=== PATIENT | male | born 1980 | race Caucasian/White ===

== ENCOUNTER 2017-12-06 20:49 | Emergency (ER) | payer BC, OTHER ==
[2017-12-06 21:06] VITALS: BP 130/79
[2017-12-06] MEDS ORDERED: predniSONE TAB* 20 MG PO ONE (21:20)
[2017-12-06] MEDS ORDERED: Clarithromycin TAB* 500 MG PO ONE (21:20)
--- NOTE | 2017-12-06 21:26 | ED ---
Respiratory - HPI Summary HPI Summary: 37 yr old male with the complaint of fever, chills, sinus pressure, post nasal drip, and wheezing. Onset over a day ago, and he has a prior history of asthma. SOB relieved with his MDI. - History of Current Complaint Chief Complaint: UCRespiratory Stated Complaint: FEVER/CONGESTION/HX ASTHMA Time Seen by Provider: 12/06/17 21:16 Pain Intensity: 0 - Allergy/Home Medications Allergies/Adverse Reactions: Allergies Allergy/AdvReac Type Severity Reaction Status Date / Time No Known Allergies Allergy Verified 11/12/15 19:50 PMH/Surg Hx/FS Hx/Imm Hx Cardiovascular History: Reports: Hx Hypertension - DIET CONTROLLED Respiratory History: Reports: Hx Asthma - Surgical History Surgery Procedure, Year, and Place: left elbow ORIF. LIPOMA REMOVAL UNDER CHIN Infectious Disease History: No Infectious Disease History: Denies: Hx Clostridium Difficile, Hx Hepatitis, Hx Human Immunodeficiency Virus (HIV), Hx of Known/Suspected MRSA, Hx Shingles, Hx Tuberculosis, Hx Known/ Suspected VRE, Hx Known/Suspected VRSA, History Other Infectious Disease, Traveled Outside the [place] in Last 30 Days - Family History Known Family History: Positive: None Family History: no known cardio-vascular disorders in family lineage - Social History Alcohol Use: Occasionally Substance Use Type: Reports: None Smoking Status (MU): Never Smoked Tobacco Review of Systems Constitutional: Negative Positive: Nasal Discharge Positive: Shortness Of Breath, Cough All Other Systems Reviewed And Are Negative: Yes Physical Exam Triage Information Reviewed: Yes Vital Signs On Initial Exam: Initial Vitals Temp Pulse Resp BP Pulse Ox 98.0 F 92 19 130/79 97 12/06/17 20:58 12/06/17 20:58 12/06/17 20:58 12/06/17 20:58 12/06/17 20:58 Vital Signs Reviewed: Yes Appearance: Positive: Well-Appearing, No Pain Distress Skin: Positive: Warm, Skin Color Reflects Adequate Perfusion Head/Face: Positive: Normal Head/Face Inspection Eyes: Positive: EOMI ENT: Positive: Pharynx normal, TMs normal, Sinus tenderness. Negative: Muffled voice Neck: Positive: Nontender Respiratory/Lung Sounds: Positive: Clear to Auscultation, Breath Sounds Present. Negative: Wheezes Cardiovascular: Positive: RRR. Negative: Murmur Abdomen Description: Positive: Nontender Musculoskeletal: Positive: Strength/ROM Intact Neurological: Positive: Sensory/Motor Intact, Alert, Oriented to Person Place, Time, CN Intact II-III Psychiatric: Positive: Normal - [place] Coma Scale Best Eye Response: 4 - Spontaneous Best Motor Response: 6 - Obeys Commands Best Verbal Response: 5 - Oriented Coma Scale Total: 15 Diagnostics - Vital Signs Vital Signs Temp Pulse Resp BP Pulse Ox 12/06/17 20:58 98.0 F 92 19 130/79 97 - Laboratory Lab Statement: Any lab studies that have been ordered have been reviewed, and results considered in the medical decision making process. Disposition - Course Course Of Treatment: 37 yr old male with sinusitis, and asthma. Plan dc home on biaxin and pred, and he can take his MDI that he has. - Diagnoses Provider Diagnoses: Sinusitis, Asthma, Elevated blood pressure reading Discharge - Sign-Out/Discharge Documenting (check all that apply): Patient Departure All imaging exams completed and their final reports reviewed: No Studies - Discharge Plan Condition: Good Disposition: HOME Prescriptions: Clarithromycin TAB* [Biaxin 500 MG TAB*] 500 mg PO BID #20 tab predniSONE TAB* [Deltasone 20 MG TAB*] 40 mg PO DAILY #8 tab Patient Education Materials: Sinusitis (ED), Asthma (ED), Hypertension (ED) Referrals: Maritza Steward PA [Primary Care Provider] - 2 Days - Billing Disposition and Condition Condition: GOOD Disposition: Home
== END 2017-12-06 21:31 | disposition home or self-care (01) ==
LOC: UCCORT 20:49
DX: J32.9 Chronic sinusitis, unspecified (principal); J45.909 Unspecified asthma, uncomplicated; R03.0 Elevated blood-pressure reading, without diagnosis of hypertension
CPT/HCPCS: 99212; A9270-GY; G0463; J7512

== ENCOUNTER 2018-06-22 16:27 | Emergency (ER) | payer BC ==
[2018-06-22 16:45] VITALS: BP 130/78
[2018-06-22 17:03] LABS: Influenza A Molecular NEGATIVE (Negative); Influenza B Molecular NEGATIVE (Negative)
--- NOTE | 2018-06-22 17:14 | ED ---
Throat Pain/Nasal Congestion - HPI Summary HPI Summary: 38 yr old with NVD. Onset two days ago. His little son has had NVD diarrhea as well. The patient has had some left frontal headache. No fever, no chills. No SOB, cough, runny nose. Symptoms are much better. He has not vomited in 15 hours, and he has had little diarrhea today. He is tolerating clear liquids no problem. No abdominal pain. - History of Current Complaint Chief Complaint: UCRespiratory Time Seen by Provider: 06/22/18 16:51 - Allergies/Home Medications Allergies/Adverse Reactions: Allergies Allergy/AdvReac Type Severity Reaction Status Date / Time No Known Allergies Allergy Verified 06/22/18 16:42 Home Medications: Home Medications Budesonide/Formote 160/4.5(NF) [Symbicort 160/4.5 (NF)] 1 puff DAILY 06/22/18 [ History Confirmed 06/22/18] Sertraline* [Zoloft*] 1 tab DAILY 06/22/18 [History Confirmed 06/22/18] PMH/Surg Hx/FS Hx/Imm Hx Cardiovascular History: Reports: Hx Hypertension - DIET CONTROLLED Respiratory History: Reports: Hx Asthma - Surgical History Surgery Procedure, Year, and Place: left elbow ORIF. LIPOMA REMOVAL UNDER CHIN Infectious Disease History: No Infectious Disease History: Denies: Hx Clostridium Difficile, Hx Hepatitis, Hx Human Immunodeficiency Virus (HIV), Hx of Known/Suspected MRSA, Hx Shingles, Hx Tuberculosis, Hx Known/ Suspected VRE, Hx Known/Suspected VRSA, History Other Infectious Disease, Traveled Outside the [place] in Last 30 Days - Family History Known Family History: Positive: None Family History: no known cardio-vascular disorders in family lineage - Social History Occupation: Employed Full-time Alcohol Use: Occasionally Substance Use Type: Reports: None Smoking Status (MU): Never Smoked Tobacco Review of Systems Negative: Photophobia Negative: Sore Throat, Nasal Discharge Negative: Shortness Of Breath, Cough Positive: Vomiting, Diarrhea, Nausea Negative: Myalgia All Other Systems Reviewed And Are Negative: Yes Physical Exam Triage Information Reviewed: Yes Vital Signs On Initial Exam: Initial Vitals Temp Pulse Resp BP Pulse Ox 98.6 F 93 16 130/78 100 06/22/18 16:43 06/22/18 16:43 06/22/18 16:43 06/22/18 16:43 06/22/18 16:43 Vital Signs Reviewed: Yes Appearance: Positive: Well-Appearing, No Pain Distress Skin: Positive: Warm, Skin Color Reflects Adequate Perfusion Head/Face: Positive: Normal Head/Face Inspection Eyes: Positive: EOMI ENT: Positive: Pharynx normal, TMs normal. Negative: Nasal congestion, Nasal drainage Respiratory/Lung Sounds: Positive: Clear to Auscultation, Breath Sounds Present Cardiovascular: Positive: RRR. Negative: Murmur Abdomen Description: Positive: Nontender Musculoskeletal: Positive: Strength/ROM Intact Neurological: Positive: Sensory/Motor Intact, Alert, Oriented to Person Place, Time, CN Intact II-III Psychiatric: Positive: Normal - Rene Coma Scale Best Eye Response: 4 - Spontaneous Best Motor Response: 6 - Obeys Commands Best Verbal Response: 5 - Oriented Coma Scale Total: 15 Diagnostics - Vital Signs Vital Signs Temp Pulse Resp BP Pulse Ox 06/22/18 16:43 98.6 F 93 16 130/78 100 - Laboratory Lab Results: Lab Results 06/22/18 Range/Units 16:51 Influenza A (Rapid) Negative (Negative) Influenza B (Rapid) Negative (Negative) Lab Statement: Any lab studies that have been ordered have been reviewed, and results considered in the medical decision making process. EENT Course/Dx - Course Course Of Treatment: 38 yr old with gastroenteritis. His rapid flu, neg. - Diagnoses Provider Diagnoses: Gastroenteritis Discharge - Sign-Out/Discharge Documenting (check all that apply): Patient Departure All imaging exams completed and their final reports reviewed: No Studies - Discharge Plan Condition: Good Disposition: HOME Patient Education Materials: Gastroenteritis (ED) Referrals: Maritza Steward PA [Primary Care Provider] - 2 Days - Billing Disposition and Condition Condition: GOOD Disposition: Home
== END 2018-06-22 17:37 | disposition home or self-care (01) ==
LOC: UCCORT 16:27
DX: K52.9 Noninfective gastroenteritis and colitis, unspecified (principal); I10 Essential (primary) hypertension; J45.909 Unspecified asthma, uncomplicated; Z79.899 Other long term (current) drug therapy
CPT/HCPCS: 99211; G0463

== ENCOUNTER 2018-10-24 16:35 | Emergency (ER) | payer BC ==
[2018-10-24 16:47] VITALS: BP 136/73
--- NOTE | 2018-10-24 16:58 | UC ---
Respiratory Complaint HPI - HPI Summary HPI Summary: Per electrical systems engineer: "Pt states cleaning and old apartment for the past 3 days and asthma symptoms have been worse. Coughing, using rescue inhaler more and, more SOB." -he feels tired but not ill. -no sinus pain or congestion -used to be on symbicort but it ran out at some point within the last couple of years. hasnt seen asthma/allergy Dr in some time and is considered a new pt when he called to sched appt today. no wheezing, has needed steroid in past. Mom has asthma. - History of Current Complaint Chief Complaint: UCRespiratory Stated Complaint: COUGH,SOME SOB,HX:ASTHMA Time Seen by Provider: 10/24/18 16:47 Pain Intensity: 0 - Allergies/Home Medications Allergies/Adverse Reactions: Allergies Allergy/AdvReac Type Severity Reaction Status Date / Time No Known Allergies Allergy Verified 10/24/18 16:48 PMH/Surg Hx/FS Hx/Imm Hx Previously Healthy: Yes Respiratory History: Asthma - Surgical History Surgical History: None Surgery Procedure, Year, and Place: left elbow ORIF. LIPOMA REMOVAL UNDER CHIN - Family History Known Family History: Positive: Respiratory Disease - Mom w/ asthma Family History: no known cardio-vascular disorders in family lineage - Social History Alcohol Use: Occasionally Substance Use Type: None Smoking Status (MU): Never Smoked Tobacco - Immunization History Most Recent Tetanus Shot: unknown Review of Systems All Other Systems Reviewed And Are Negative: Yes Constitutional: Positive: Fatigue. Negative: Fever, Chills Skin: Positive: Negative. Negative: Rash Eyes: Positive: Negative ENT: Positive: Negative Respiratory: Positive: Shortness Of Breath - mild, Cough Cardiovascular: Positive: Negative Gastrointestinal: Positive: Negative Motor: Positive: Negative Neurovascular: Positive: Negative Musculoskeletal: Positive: Negative Neurological: Positive: Negative Psychological: Positive: Negative Is Patient Immunocompromised?: No Physical Exam Triage Information Reviewed: Yes Appearance: Well-Appearing, No Pain Distress, Well-Nourished - very pleasant. speaks full sentences in normal tone without any cough or resp distress. no stridor Vital Signs: Initial Vital Signs Temp 98.5 F 10/24/18 16:44 Pulse 74 10/24/18 16:44 Resp 18 10/24/18 16:44 BP 136/73 10/24/18 16:44 Pulse Ox 97 10/24/18 16:44 Vital Signs Reviewed: Yes Eye Exam: Normal ENT: Positive: Pharynx normal, TMs normal Neck exam: Normal Neck: Positive: Supple, Nontender, No Lymphadenopathy Respiratory Exam: Normal Respiratory: Positive: Lungs clear, No respiratory distress, No accessory muscle use, Decreased breath sounds. Negative: Crackles, Rhonchi, Stridor, Wheezing Cardiovascular Exam: Normal Cardiovascular: Positive: RRR, No Murmur, Pulses Normal, Brisk Capillary Refill Abdomen Description: Positive: Nontender, Soft Neurological Exam: Normal Psychological Exam: Normal Skin Exam: Normal Respiratory Course/Dx - Course Course Of Treatment: -sx are mild. cont alb. last dose 4 hrs ago. use Q4-6 hrs until sx improve. starte medrol dose pack tonight. may need to restart symbicort but would need baselien PFTs. has appt to re-est care w/ steve ames in jan. enc to keep appt. f/u if sx worsen or persist. he v/u and agreeable w/ plan. no e/o ifection at this time. - Differential Dx/Diagnosis Differential Diagnosis/HQI/PQRI: Asthma, Bronchitis, Lower Resp Infection, Sinusitis Provider Diagnosis: Asthma exacerbation Discharge - Sign-Out/Discharge Documenting (check all that apply): Patient Departure All imaging exams completed and their final reports reviewed: No Studies - Discharge Plan Condition: Stable Disposition: HOME Prescriptions: methylPREDNISolone [Medrol Dosepak 4 MG*] 4 mg PO DAILY #1 nimesh Patient Education Materials: Asthma (ED) Referrals: Maritza Steward PA [Primary Care Provider] - 5 Days Additional Instructions: Please make sure to keep appt w/ asthma and allergy doctors in Jan to re- establish care. You should be having regular breathing tests done. This will help determine if you still need to be on the symbicort. If your symptoms do not improve, consideration should be given prior to the re-establish care appt in January. -We discussed risks of prednisone including but not limited to anxiety, agitation, insomnia, GI upset, elevated blood pressures and blood sugar readings , adrenal crisis and avascular necrosis of the hip. - Billing Disposition and Condition Condition: STABLE Disposition: Home
== END 2018-10-24 17:20 | disposition home or self-care (01) ==
LOC: UCCORT 16:35
DX: J45.901 Unspecified asthma with (acute) exacerbation (principal)
CPT/HCPCS: 99212; G0463

== ENCOUNTER 2018-12-21 08:53 | Emergency (ER) | payer BC ==
--- OUTSIDE RECORDS SUMMARY | 2018-12-21 09:10 | XMS REPORT | Continuity of Care Document ---
:1980 External Reference #:[id number] Author Name Maritza Steward PA Address [address] [place] [address] Care Team Providers Name Role Phone Maritza Steward PA Care Team Information Milling Operator Unavailable Maritza Steward PA Primary Care Physician Unavailable Payers Date Identification Numbers Payment Provider Subscriber Policy Number: [id number] Sarah Lorenz PayID: [id number] [address] [address] [place] [address] Problems Active Problems Provider Date Allergic rhinitis Maritza Steward PA Onset: 06/27/2017 Mild intermittent asthma Maritza Steward PA Onset: 06/27/2017 Anxiety state Maritza Steward PA Onset: 06/27/2017 Elevated blood-pressure reading without Maritza Steward PA Onset: 06/27/2017 diagnosis of hypertension Closed fracture of proximal end of radius Israel Trujillo M.D. Onset: 2014 Family History Date Family Member(s) Observation Comments Mother Anxiety Mother Hypertension : (age 94 Maternal Grandfather due to Pneumonia Years) Maternal Grandmother due to Colon Cancer () Social History Type Date Description Comments Sex Unknown Lives With Heidy-34 Lives With 1 Year 4 Months Son Marcus Diet Patient follows no dietary Tries to eat healthy restrictions Occupation Teacher ADL's/IADL's Independent with all ADL's Tobacco Use Start: Unknown Never Smoked Cigarettes ETOH Use Currently consumes alcohol socially Tobacco Use Start: Unknown Patient denies history of smoking Smoking Status Reviewed: 10/30/18 Patient denies history of smoking Allergies, Adverse Reactions, Alerts Active Allergies Reaction Severity Comments Date Pollen 06/16/2014 Dust 06/16/2014 Medications Active Medications SIG Qnty Indications Ordering Provider Date Flovent Diskus Inhale 1 puff 60units J45.20 Larisa Jules, 10/30/2018 by mouth 2 MD 50mcg/Blist Aerosol times per day for asthma Desloratadine 1 by mouth 30tabs J30.9 Larisa Jules, 10/30/2018 5mg Tablets every day Sertraline HCL 1 by mouth 30tabs F41.9 Larisa Jules, 07/04/2018 50mg every day MD Tablets Ventolin HFA 2 puffs every 4 18gm J45.20 Larisa Jules, 06/27/2017 108(90Base) hours as needed mcg/Act Aerosol for cough and wheeze History Medications Sertraline HCL 1 by mouth 30tabs F41.9 Larisa Jules, 05/23/2018 - 25mg every day MD 07/04/2018 Tablets No Active Medications Unknown 06/27/2017 - 06/27/2017 Sertraline HCL Unknown - 25mg 06/27/2017 Tablets Immunizations CPT Code Status Date Vaccine Lot # [id number] Given 05/23/2018 Influenza Virus Vaccine, Quadrivalent, 36 Mos+, [id number] Vital Signs Date Vital Result Comment 10/30/2018 8:49am BP Systolic 134 mmHg BP Diastolic 84 mmHg Body Temperature 97.6 F Heart Rate 75 /min Respiratory Rate 17 /min Weight 195.00 lb O2 % BldC Oximetry 97 % 10/02/2018 1:44pm BP Systolic 128 mmHg BP Diastolic 84 mmHg Body Temperature 97.8 F Heart Rate 76 /min Weight 192.50 lb O2 % BldC Oximetry 98 % 07/04/2018 4:21pm BP Systolic Sitting Left Arm 118 mmHg BP Diastolic Sitting Left Arm 70 mmHg Heart Rate 84 /min Respiratory Rate 18 /min Height 68 inches 5'8" Weight 184.00 lb BMI (Body Mass Index) 28.0 kg/m2 BSA (Body Surface Area) 1.97 m2 [place] body weight in kilograms 70 kg 05/23/2018 1:28pm BP Systolic Sitting Right Arm 128 mmHg BP Diastolic Sitting Right Arm 72 mmHg Body Temperature 97.4 F Heart Rate 83 /min Height 68 inches 5'8" Weight 185.00 lb BMI (Body Mass Index) 28.1 kg/m2 BSA (Body Surface Area) 1.98 m2 [place] body weight in kilograms 70 kg O2 % BldC Oximetry 98 % 07/28/2017 9:25am BP Systolic Sitting Left Arm 132 mmHg BP Diastolic Sitting Left Arm 82 mmHg Heart Rate 80 /min Respiratory Rate 18 /min Height 69 inches 5'9" Weight 186.12 lb BMI (Body Mass Index) 27.5 kg/m2 BSA (Body Surface Area) 2.00 m2 [place] body weight in kilograms 73 kg 06/27/2017 2:12pm BP Systolic 144 mmHg BP Diastolic 90 mmHg Body Temperature 97.0 F Heart Rate 70 /min Height 69 inches 5'9" Weight 191.00 lb BMI (Body Mass Index) 28.2 kg/m2 BSA (Body Surface Area) 2.03 m2 [place] body weight in kilograms 73 kg O2 % BldC Oximetry 97 % 06/16/2014 1:32pm BP Systolic Sitting Right Arm 141 mmHg BP Diastolic Sitting Right Arm 82 mmHg Height 69 inches 5'9" Weight 200.00 lb BMI (Body Mass Index) 29.5 kg/m2 BSA (Body Surface Area) 2.07 m2 Results Test Date Facility Test Result H/L Range Note Rapid Influenza 06/22/2018 [facility] Influenza A NEGATIVE Negative 1 A & B Molecular [phone] Molecular Influenza B Molecular NEGATIVE Negative Urine Dipstick 05/23/2018 [facility]a Color Yellow Yellow Ua Clarity clear Clear Ua Leuko negative Negative Ua Nitrite negative Negative Ua Urobilinogen 0.2 0.2 - 1.0 E.U./dL Ua Protein negative Negative Ua PH 6.5 6.5-7.5 Ua Blood trace Negative Ua Specific [place] 1.010 1.010-1.030 Ua Ketones negative Negative Ua Bilirubin negative Negative Ua Glucose negative Negative CBS W/Automated 07/26/[address] [facility] [address] White Blood 6.3 K/uL Normal 3.4-10.[address] [place] [address] [phone] Red Blood Count 5.84 M/uL High 4.20-5.80 Hemoglobin 16.8 gm/dL Normal 12.8-17.0 Hematocrit 48.8 % High 38.0-48.0 Mean Cell Volume 83.6 fl Normal 80.0-96.0 Mean Corpuscular HGB 28.8 pg Normal 27.0-33.0 Mean Corpuscular HGB Conc 34.4 g/dL Normal 31.7-36.0 Platelet Count 230 K/uL Normal 155-360 Red Cell Distri Width SD 42.2 fl Normal 36-51 Red Cell Distri Width %CV 14.0 % Normal 11.6-15.8 Mean Platelet Volume 8.9 fL Normal 6.6-10.6 Neut% 58.4 % Normal 33.0-73.0 Lymph % 27.5 % Normal 20.0-42.0 Branch % 9.3 % Normal 0.0-10.0 Eo% 4.5 % Normal 0.0-6.6 Bas% 0.3 % Normal 0.0-1.1 Neut# 3.66 K/uL Normal 1.8-7.0 Lymph # 1.72 K/uL Normal 1.0-4.0 Branch # 0.58 K/uL Normal 0.0-0.8 Eos # 0.28 K/uL Normal 0.0-0.5 Baso # 0.02 K/uL Normal 0.0-0.1 Comprehensive 07/26/[address] [facility] [address] Glucose 92 mg/dL Normal 74-106 Metabolic Panel [address] [place], [place] [id number] [phone] BUN 10 mg/dL Normal 7-18 Creatinine 0.9 mg/dL Normal 0.6-1.3 Glom Filtration Rate, Estimate >60 mL/min >60 If >60 mL/min >60 3 BUN/Creat 11.1 ratio Sodium 139 mmol/L Normal 136-145 Potassium 4.1 mmol/L Normal 3.5-5.1 Chloride 106 mmol/L Normal 98-107 Carbon Dioxide 30 mmol/L Normal 21-32 Anion Gap 3 mEq/L Low 8-16 Calcium 8.8 mg/dL Normal 8.5-10.1 Total Protein 7.7 g/dL Normal 6.4-8.2 Albumin 4.1 g/dL Normal 3.4-5.0 Globulin 3.6 g/dL Normal 1.9-4.3 Alb/Glob 1.1 ratio Bilirubin,Total 1.4 mg/dL High 0.2-1.0 Sgot/Ast 18 U/L Normal 15-37 SGPT/Alt 31 U/L Normal 12-78 Alkaline Phosphatase 57 U/L Normal 45-117 Reflex add FT3? Y Reflex add FT4? Y LDL Cholesterol Profile 07/26/[address] Cholesterol 153 mg/dL <200 4 [address] [place] [address] [phone] Triglycerides 98 mg/dL <150 5 HDL Cholesterol 44 mg/dL >40 6 LDL-Cholesterol 89 mg/dL < 100 7 Reflex add FT3? Y Reflex add FT4? Y TSH Reflex 07/26/[address] Thyroid Stim 1.80 uIU/mL Normal 0.30-4.20 FT4 And/Or [address] [facility] Hormone FT3 [place] [address] [phone] Reflex add FT3? Y Reflex add FT4? Y 1 Switchbox Assembler: [id number] 2 R03.0 3 Note: Persistent reduction for 3 months or more in an eGFR <60 mL/min/1.73 m2 defines CKD. Patients with eGFR values >/=60 mL/min/1.73 m2 may also have CKD if evidence of persistent proteinuria is present. The original MDRD equation for estimated GFR is not valid for patients less than 18 years of age. Additional information may be found at www.kdoqi.org. 4 Reference Guidelines*: Desirable: ........... < 200 mg/dL Borderline High: ..... 200-239 mg/dL High: ................ >= 240 mg/dL * The National Cholesterol Education Program (NCEP) 5 Reference Guidelines*: Normal: ............. < 150 mg/dL Borderline High: .... 150-199 mg/dL High: ............... 200-499 mg/dL Very High: .......... > 500 mg/dL * Source: National Cholesterol Education Program (NCEP) 6 Reference Guidelines*: Low HDL: ..... < 40 mg/dL Normal: ..... 40-60 mg/dL Desirable: ... > 60 mg/dL *The National Cholesterol Education Program(NCEP) 7 Reference Guidelines*: Optimal:........... <100 mg/dL Near Optimal....... 100-129 mg/dL Borderline High.... 130-159 mg/dL High............... 160-189 mg/dL Very High.......... >=190 mg/dL * Source: National Cholesterol Education Program (NCEP) Procedures Date Code Description Status 10/02/2018 87508 Brief Emotional/Behav Assessment W/ Scoring Doc Per Completed Standard Inst 07/04/2018 07101 Brief Emotional/Behav Assessment W/ Scoring Doc Per Completed Standard Inst 06/23/2014 09134 Radiology, Elbow Complete Completed 06/16/2014 06806 Radial head/neck fx closed w/o manipulation Completed Encounters Type Date Location Provider Dx Diagnosis Office Visit 10/02/2018 [facility] Maritza Painting PA F41.9 Anxiety disorder, 1:[place] unspecified S83.402A Sprain of unsp collateral ligament of left knee, init encntr J45.20 Mild intermittent asthma, uncomplicated Office Visit 07/04/2018 4:00p [facility] [place] Maritza Steward, F41.9 Anxiety disorder, [facility] PA unspecified Office Visit 05/23/2018 1:15p [facility] [place] Maritza Steward, Z00.00 Encntr for general Pascual ESTEVEZ PA adult medical exam w/o abnormal findings F41.9 Anxiety disorder, unspecified R51 Headache J45.20 Mild intermittent asthma, uncomplicated Z23 Encounter for immunization Office Visit 07/28/2017 9:15a [facility] Maritza Painting, R03.[address] PA blood-pressure reading, w/o diagnosis of htn F41.9 Anxiety disorder, unspecified R51 Headache Office Visit 06/27/2017 2:15p [facility] Maritza Painting, R03.[address] PA blood-pressure reading, w/o diagnosis of htn F41.9 Anxiety disorder, unspecified J45.20 Mild intermittent asthma, uncomplicated J30.9 Allergic rhinitis, unspecified Plan of Treatment Future Appointment(s):01/29/2019 4:00 pm - Maritza Steward PA at [facility] - Maritza Steward, RITAJ45.20 Mild intermittent asthma, uncomplicatedNew Medication:Flovent Diskus 50 mcg/Blist - Inhale 1 puff by mouth 2 times per day for asthmaFollow up:3 [id number] Neoplasm of uncertain behavior of skinComments:Let's set up an appointment for removal of this skin lesion.Follow up:Skin lesion removal 30 minS29.012A Strain of muscle and tendon of back wall of thorax, initial encounterComments:Apply ice as needed.Motrin as neededUse care in the work that you are doing.J30.9 Allergic rhinitis, unspecifiedNew Medication:Desloratadine 5 mg - 1 by mouth every dayComments:Let' s use the allergy medication daily for the next couple weeks until you get back to baseline.
[2018-12-21 09:26] VITALS: BP 144/88
[2018-12-21] MEDS ORDERED: Albuterol/Ipratropium NEB.SOL* Albuterol 2.5 MG/Ipratropium 0.5 MG 3 ML INH ONE (10:19)
--- NOTE | 2018-12-21 11:34 | UC ---
Throat Pain/Nasal Bertin HPI - HPI Summary HPI Summary: Patient presents to urgent care with frontal sinus pressure postnasal drip cough progressive for 3 or 4 days. Patient states intermittently feels wheezes. Patient with a history of asthma and uses MDI with little improvement. Patient denies nausea vomiting. Patient states he's got postnasal drip and sore throat. 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 Patient medications reviewed this visit. - History of Current Complaint Chief Complaint: UCGeneralIllness Stated Complaint: CONGESTION COUGH SINUS Time Seen by Provider: 12/21/18 09:50 Hx Obtained From: Patient Pain Intensity: 0 Pain Scale Used: 0-10 Numeric - Allergies/Home Medications Allergies/Adverse Reactions: Allergies Allergy/AdvReac Type Severity Reaction Status Date / Time No Known Allergies Allergy Verified 12/21/18 09:27 Home Medications: Home Medications Acetaminophen/Chlorpheniramine [Coricidin Hbp Cold-Flu Tablet] 1 tab PO ONCE [History Confirmed 12/21/18] PMH/Surg Hx/FS Hx/Imm Hx Previously Healthy: Yes Respiratory History: Asthma - No intubations no hospitalizations - Surgical History Surgical History: None Surgery Procedure, Year, and Place: left elbow ORIF. LIPOMA REMOVAL UNDER CHIN - Family History Known Family History: Positive: None, Respiratory Disease - Mom w/ asthma, Non- Contributory Family History: no known cardio-vascular disorders in family lineage - Social History Occupation: Employed Full-time Lives: With Family Alcohol Use: Occasionally Substance Use Type: None Smoking Status (MU): Never Smoked Tobacco - Immunization History Most Recent Tetanus Shot: unknown Review of Systems All Other Systems Reviewed And Are Negative: Yes Constitutional: Positive: Fatigue ENT: Positive: Sore Throat, Nasal Discharge, Sinus Congestion Respiratory: Positive: Cough, Other - wheeze Is Patient Immunocompromised?: No Physical Exam - Summary Physical Exam Summary: Vital Signs Reviewed: Yes A+Ox3, no distress Eyes: Conjunctiva Clear, LIANA. EOM intact and full ENT: Hearing grossly normal mild fluid right TM- no erythema, turbinates boggy and inflammed, + TTP frontal area + PND mmoist, uvula midline, no exudate, no erythema Neck: Positive: Supple Respiratory: Positive: No respiratory distress, No accessory muscle use + CTA throughout coarse cough, exp wheeze diffuse Cardiovascular: RRR nl s1, s2 no m/r CBT <2 sec abd soft + BS nt/nd no guarding, no distension Musculoskeletal Exam: PEREIRA x 4 without difficulty Strength Intact, ROM Intact Neurological: Positive: Alert, + sensation throughout Psychological: Positive: Normal Response To examiner Skin: Positive: no rash, no ecchymosis Triage Information Reviewed: Yes Vital Signs: Initial Vital Signs Temp 98.6 F 12/21/18 09:21 Pulse 70 12/21/18 09:21 Resp 16 12/21/18 09:21 BP 144/88 12/21/18 09:21 Pulse Ox 100 12/21/18 09:21 Re-Evaluation - Re-Evaluation First Eval Change: Improved - Patient improved following DuoNeb. States feel like is related. Coughing less. We'll do antibiotics and prednisone. Discussed with patient secretion precaution return precaution. Patient comfortable in agreement with plan. Throat Pain/Nasal Course/Dx - Course Course Of Treatment: Patient presents to urgent care reporting 3-4 days progressive cough, wheeze, sinus congestion postnasal drip. No nausea vomiting. Patient uses MDI with intermittent short-term relief. Patient without any nausea vomiting diarrhea. Decreased appetite. Decreased energy. 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 Vital signs are stable. On exam patient consistent with rhinosinusitis. Patient also with diffuse scattered wheezes with coarse cough. We'll give DuoNeb and reassessed. Anticipate antibiotics, prednisone. Patient states he has not been yet. Work note for today. Patient comfortable in agreement with plan. BP elevated - related to presentation - Differential Dx/Diagnosis Provider Diagnosis: Acute bronchitis, Rhinosinusitis Discharge ED - Sign-Out/Discharge Documenting (check all that apply): Patient Departure All imaging exams completed and their final reports reviewed: No Studies - Discharge Plan Condition: Stable Disposition: HOME Prescriptions: Amoxicillin/Clavulanate TAB* [Augmentin TAB 875*] 875 mg PO BID #20 tab predniSONE TAB* [Deltasone TAB*] 50 mg PO DAILY #5 tab Patient Education Materials: Acute Bronchitis (ED) Forms: *Work Release Referrals: Maritza Steward PA [Primary Care Provider] - Additional Instructions: - Take antibiotics exactly as prescribed until gone - Take prednisone daily as prescribed -Use your albuterol puffer - 2 puffs ever 4-6 hours for the next 3 days - then as needed -Stay well hydrated - avoid excess caffeine and all alcohol - eat regular, healthy meals - Take a decongestant (Claritin-D, Terese-D, Zyretec-D) -These infections are spread by oral secretions. Do not share eating or drinking utensils. Frequent hand washing is important. Clean items that may get your secretions on them such as cell phones, ipads, computer mouse, television remotes. Once you have been on antbiotics for 2 days, change your pillowcase and your toothbrush -Contact your doctor to arrange a follow-up appointment this week. Call your doctor, return here or go to the emergency department with any questions or concerns - Billing Disposition and Condition Condition: STABLE Disposition: Home
== END 2018-12-21 10:43 | disposition home or self-care (01) ==
LOC: UCCORT 08:53
DX: J20.9 Acute bronchitis, unspecified (principal); J32.9 Chronic sinusitis, unspecified
CPT/HCPCS: 99212; A9270-GY; G0463

== ENCOUNTER 2019-01-09 15:44 | Emergency (ER) | payer BC ==
[2019-01-09 15:56] VITALS: BP 136/74
--- NOTE | 2019-01-09 15:58 | UC ---
Respiratory Complaint HPI - HPI Summary HPI Summary: 38-year-old male who has a history of asthma. He was seen couple of weeks ago and was put on prednisone. He states that he improved somewhat however the past few days he's needed to use his albuterol inhaler more frequently and continues to have wheezing and occasional productive cough. 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 - History of Current Complaint Chief Complaint: UCRespiratory Stated Complaint: COUGH,SOB,ASTHMA Time Seen by Provider: 01/09/19 15:57 Hx Obtained From: Patient Onset/Duration: Gradual Onset Timing: Intermittent Episodes Severity Initially: Mild Severity Currently: Mild Pain Intensity: 0 Character: Cough: Productive - Cough is occasionally productive. Aggravating Factors: Allergens Alleviating Factors: Bronchodilator - Patient has needed to use his upper all inhaler more frequently the past week Associated Signs And Symptoms: Positive: Nasal Congestion - Allergies/Home Medications Allergies/Adverse Reactions: Allergies Allergy/AdvReac Type Severity Reaction Status Date / Time No Known Allergies Allergy Verified 01/09/19 15:56 PMH/Surg Hx/FS Hx/Imm Hx Previously Healthy: Yes Respiratory History: Asthma - Surgical History Surgical History: None Surgery Procedure, Year, and Place: left elbow ORIF. LIPOMA REMOVAL UNDER CHIN - Family History Known Family History: Positive: None, Respiratory Disease - Mom w/ asthma, Non- Contributory Family History: no known cardio-vascular disorders in family lineage - Social History Occupation: Employed Full-time Lives: With Family Alcohol Use: Occasionally Substance Use Type: None Smoking Status (MU): Never Smoked Tobacco - Immunization History Most Recent Tetanus Shot: unknown Review of Systems All Other Systems Reviewed And Are Negative: Yes Respiratory: Positive: Cough - Occasionally productive cough with occasional wheezing. Is Patient Immunocompromised?: No Physical Exam Triage Information Reviewed: Yes Appearance: Well-Appearing, No Pain Distress, Well-Nourished Vital Signs: Initial Vital Signs Temp 97.6 F 01/09/19 15:53 Pulse 74 01/09/19 15:53 Resp 16 01/09/19 15:53 BP 136/74 01/09/19 15:53 Pulse Ox 99 01/09/19 15:53 Vital Signs Reviewed: Yes Eyes: Positive: Conjunctiva Clear ENT: Positive: Pharynx normal, TMs normal, Uvula midline Neck: Positive: Supple, Nontender, No Lymphadenopathy Respiratory: Positive: Normal breath sounds, No respiratory distress, No accessory muscle use, Wheezing - Very minimal expiratory wheeze lower lobes. Good air movement throughout all lung schmitt. Cardiovascular: Positive: RRR, No Murmur, Pulses Normal, Brisk Capillary Refill Musculoskeletal Exam: Normal Neurological Exam: Normal Psychological Exam: Normal Skin Exam: Normal Respiratory Course/Dx - Course Course Of Treatment: DuoNeb treatment: Patient is feeling much better after the DuoNeb treatment. His lungs are clear with good air movement throughout. Chest X-ray:Indication: Cough, shortness of breath. 2 views of the chest including dual energy PA views demonstrate no mediastinal shift. Heart is of normal size and configuration. Lung schmitt are clear. IMPRESSION: No active cardiopulmonary disease is noted. We discussed using a white board at work rather than the chalkboard. I believe this is more of a reactive airway issue. Patient stated symptoms started approximately 2 or 3 weeks ago when he was helping an aunt move out of her house. - Differential Dx/Diagnosis Provider Diagnosis: Reactive airway disease Discharge ED - Sign-Out/Discharge Documenting (check all that apply): Patient Departure All imaging exams completed and their final reports reviewed: Yes - Discharge Plan Condition: Good Disposition: HOME Prescriptions: predniSONE TAB* [Deltasone 20 MG TAB*] 40 mg PO DAILY 5 Days #10 tab Patient Education Materials: Reactive Airways Disease (ED) Referrals: Maritza Steward PA [Primary Care Provider] - Additional Instructions: Use her albuterol inhaler 2 puffs every 4-6 hours as needed for wheezing or tight cough. Take the prednisone with food. Keep your appointment with your primary care provider on Monday. Replace the known allergens at work. - Billing Disposition and Condition Condition: GOOD Disposition: Home - Attestation Statements Provider Attestation: Per institutional requirements, I have reviewed the chart, however, I was not consulted specifically or made aware of this patient by the midlevel provider. I did not personally evaluate, interact with , or disposition this patient.
[2019-01-09] MEDS ORDERED: Albuterol/Ipratropium NEB.SOL* Albuterol 2.5 MG/Ipratropium 0.5 MG 3 ML INH ONE (16:06)
== END 2019-01-09 17:14 | disposition home or self-care (01) ==
LOC: UCCORT 15:44
DX: J45.909 Unspecified asthma, uncomplicated (principal)
CPT/HCPCS: 71046; 99212; A9270-GY; G0463

== ENCOUNTER 2019-02-24 09:11 | Emergency (ER) | payer BC ==
--- OUTSIDE RECORDS SUMMARY | 2019-02-24 09:17 | XMS REPORT | Continuity of Care Document ---
:1980 External Reference #:[id number] Author Name Maritza Steward PA Address [address] [place] [address] Care Team Providers Name Role Phone SetterBienvenido MD - Orthopaedic Care Team Information [place] [phone] Surgery Maritza Steward PA - Medical Care Team Information [place] [phone] Problems Active Problems Provider Date Allergic rhinitis Maritza Steward PA Onset: 06/27/2017 Mild intermittent asthma Maritza Steward PA Onset: 06/27/2017 Anxiety state Maritza Steward PA Onset: 06/27/2017 Elevated blood-pressure reading without Maritza Steward PA Onset: 06/27/2017 diagnosis of hypertension Closed fracture of proximal end of radius Israel Trujillo M.D. Onset: 2014 Social History Type Date Description Comments Sex Unknown Tobacco Use Start: Unknown Never Smoked Cigarettes ETOH Use Currently consumes alcohol socially Tobacco Use Start: Unknown Patient denies history of smoking Smoking Status Reviewed: 01/15/19 Patient denies history of smoking Allergies, Adverse Reactions, Alerts Active Allergies Reaction Severity Comments Date Pollen 06/16/2014 Dust 06/16/2014 Medications Active Medications SIG Qnty Indications Ordering Provider Date Symbicort inhale 2 puffs 20.7gm J45.20 Larisa Jules, 01/15/2019 80-4.5mcg/Act by mouth twice MD Aerosol daily Desloratadine 1 by mouth 30tabs J30.9 Larisa Jules, 10/30/2018 5mg Tablets every day MD Sertraline HCL 1 by mouth 30tabs F41.9 Larisa Jules, 07/04/2018 50mg Tablets every day Ventolin HFA 2 puffs every 4 18gm J45.20 Larisa Jules, 06/27/2017 108(90Base) hours as needed mcg/Act Aerosol for cough and wheeze History Medications Flovent Diskus Inhale 1 puff 60units J45.20 Larisa Jules, 10/30/2018 - by mouth 2 MD 01/15/2019 50mcg/Blist Aerosol times per day for asthma Immunizations CPT Code Status Date Vaccine Lot # [id number] Given 05/23/2018 Influenza Virus Vaccine, Quadrivalent, 36 Mos+, [id number] .[id number] Vital Signs Date Vital Result Comment 01/15/2019 9:23am BP Systolic 124 mmHg BP Diastolic 72 mmHg Body Temperature 97.8 F Heart Rate 85 /min Respiratory Rate 19 /min Height 68 inches 5'8" Weight 210.00 lb BMI (Body Mass Index) 31.9 kg/m2 BSA (Body Surface Area) 2.09 m2 [place] body weight in kilograms 70 kg O2 % BldC Oximetry 98 % 10/30/2018 8:49am BP Systolic 134 mmHg BP Diastolic 84 mmHg Body Temperature 97.6 F Heart Rate 75 /min Respiratory Rate 17 /min Weight 195.00 lb O2 % BldC Oximetry 97 % Results Description No Information Available Procedures Date Code Description Status 10/02/2018 72464 Brief Emotional/Behav Assessment W/ Scoring Doc Per Completed Standard Inst Medical Devices Description No Information Available Encounters Type Date Location Provider Dx Diagnosis Office Visit 10/30/2018 Family Medicine Maritza Steward J45.20 Mild intermittent 8:45a Pascual SALINAS asthma, uncomplicated D48.5 Neoplasm of uncertain behavior of skin S29.012A Strain of muscle and tendon of back wall of thorax, init J30.9 Allergic rhinitis, unspecified Office Visit 10/02/2018 1:45p Family Medicine Maritza Steward, F41.9 Anxiety disorder, Pascual SALINAS unspecified S83.402A Sprain of unsp collateral ligament of left knee, init encntr J45.20 Mild intermittent asthma, uncomplicated Assessments Date Code Description Provider 01/15/2019 J45.20 Mild intermittent asthma, uncomplicated Maritza Steward PA 01/15/2019 Z23 Encounter for immunization Maritza Steward PA 01/15/2019 J30.9 Allergic rhinitis, unspecified Maritza Steward PA 10/30/2018 J45.20 Mild intermittent asthma, uncomplicated Maritza Steward PA 10/30/2018 D48.5 Neoplasm of uncertain behavior of skin Maritza Steward PA 10/30/2018 S29.012A Strain of muscle and tendon of back wall of Maritza Steward PA thorax, initial encounter 10/30/2018 J30.9 Allergic rhinitis, unspecified Maritza Steward PA 10/02/2018 F41.9 Anxiety disorder, unspecified Maritza Steward PA 10/02/2018 S83.402A Sprain of unspecified collateral ligament of Maritza Steward PA left knee, initial encounter 10/02/2018 J45.20 Mild intermittent asthma, uncomplicated Maritza Steward PA Plan of Treatment Future Appointment(s):01/29/2019 4:00 pm - Maritza Steward PA at [facility] RD01/15/2019 - Maritza Steward PAJ45.20 Mild intermittent asthma, uncomplicatedNew Medication:Symbicort 80-4.5 mcg/Act - inhale 2 puffs by mouth twice dailyComments:Asthma has been poorly controlled. Stop the Flovent. We will switch to Symbicort, 2 puffs, twice daily. This is a stronger controller medication with steroid and long acting bronchodilator. You may continue to use the Rescue inhaler, Ventolin, as needed.Z23 Encounter for immunizationImmunizations/Injections:Influenza Virus Vaccine, Quadrivalent, 36 Mos+, .5MLJ30.9 Allergic rhinitis, unspecifiedComments:Allergies may be contributing to the asthma exacerbation. Please take the Zyrtec daily for 2-3 weeks, until symptoms calm down. We will review at your visit on 01/29. Functional Status Functional Condition Comment Date Status Independent with all ADL's Active Mental Status Description No Information Available Referrals Description No Information Available
--- OUTSIDE RECORDS SUMMARY | 2019-02-24 09:17 | XMS REPORT | Continuity of Care Document ---
:1980 External Reference #:[id number] Author Name Maritza Steward PA Address [address] [place] [address] Care Team Providers Name Role Phone Bienvenido Sheridan MD - Orthopaedic Care Team Information [employer] [phone] Surgery Maritza Steward PA - Medical Care Team Information [employer] [phone] Problems Active Problems Provider Date Closed fracture of proximal end of radius Israel Trujillo M.D. Onset: 2014 Elevated blood-pressure reading without Maritza Steward PA Onset: 06/27/2017 diagnosis of hypertension Anxiety state Maritza Steward PA Onset: 06/27/2017 Mild intermittent asthma Maritza Steward PA Onset: 06/27/2017 Allergic rhinitis Maritza Steward PA Onset: 06/27/2017 Social History Type Date Description Comments Sex Unknown Tobacco Use Start: Unknown Never Smoked Cigarettes ETOH Use Currently consumes alcohol socially Tobacco Use Start: Unknown Patient denies history of smoking Smoking Status Reviewed: 01/29/19 Patient denies history of smoking Allergies, Adverse [...] needed mcg/Act Aerosol for cough and wheeze Zyflamend 2 twice a day Unknown with meals History Medications Flovent Diskus Inhale 1 puff 60units J45.20 Larisa Jules, 10/30/2018 - by mouth 2 01/15/2019 50mcg/Blist Aerosol times per day for asthma Immunizations CPT Code Status Date Vaccine Lot # [id number] Given 01/15/2019 Influenza Virus Vaccine, Quadrivalent, 36 Mos+, [id number] .[id number] Given 05/23/2018 Influenza Virus Vaccine, Quadrivalent, 36 Mos+, [id number] .[id number] Vital Signs Date Vital Result Comment 01/29/2019 4:10pm BP Systolic 128 mmHg BP Diastolic 70 mmHg Body Temperature 98.2 F Heart Rate 80 /min Respiratory Rate 18 /min Height 68 inches 5'8" Weight 209.38 lb BMI (Body Mass Index) 31.8 kg/m2 BSA (Body Surface Area) 2.08 m2 [place] body weight in kilograms 70 kg O2 % BldC Oximetry 98 % 01/15/2019 9:23am BP Systolic 124 mmHg BP Diastolic 72 mmHg Body Temperature 97.8 F Heart Rate 85 /min Respiratory Rate 19 /min Height 68 inches 5'8" Weight 210.00 lb BMI (Body Mass Index) 31.9 kg/m2 BSA (Body Surface Area) 2.09 m2 [place] body weight in kilograms 70 kg O2 % BldC Oximetry 98 % Results Test Acquired Date Facility Test Result H/L Range Note Laboratory test 01/29/2019 Off Site Lab Biopsy Skin <pending> finding Procedures Date Code Description Status 10/02/2018 16007 Brief Emotional/Behav Assessment W/ Scoring Doc Per Completed Standard Inst Medical Devices Description No Information Available Encounters Type Date Location Provider Dx Diagnosis Office Visit 01/15/2019 Family Maritza Painting J45.20 Mild intermittent 9:15a Pascual ESTEVEZ PA asthma, uncomplicated J30.9 Allergic rhinitis, unspecified Z23 Encounter for immunization Office Visit 10/30/2018 8:45a Maritza Martinez J45.20 Mild intermittent [place] [facility] PA asthma, uncomplicated D48.5 Neoplasm of uncertain behavior of skin S29.012A Strain of muscle and tendon of back wall of thorax, init J30.9 Allergic rhinitis, unspecified Office Visit 10/02/2018 1:45p [facility] Maritza Steward, F41.9 Anxiety disorder, [facility] unspecified S83.402A Sprain of unsp collateral ligament of left knee, init encntr J45.20 Mild intermittent asthma, uncomplicated Assessments Date Code Description Provider 01/29/2019 D48.5 Neoplasm of uncertain behavior of skin Maritza Steward PA 01/29/2019 J45.20 Mild intermittent asthma, uncomplicated Maritza Steward PA 01/15/2019 J45.20 Mild intermittent asthma, uncomplicated Maritza Steward PA 01/15/2019 J30.9 Allergic rhinitis, unspecified Maritza Steward PA 01/15/2019 Z23 Encounter for immunization Maritza Steward PA 10/30/2018 J45.20 Mild intermittent [...] Maritza Steward PA Plan of Treatment Future Appointment(s):04/29/2019 8:30 am - Marit[facility]ward [facility] at [facility]01/29/2019 - Maritza Steward PAD48.5 Neoplasm of uncertain behavior of skinComments:Punch biopsy taken today. Wound should be washed with soap and water and fresh BandAid applied w abxoint daily. Follow up in 1 week for suture removal.J45.20 Mild intermittent asthma, uncomplicatedComments: Symptoms are improving. COnitnue with twice daily Symbicort and Ventolin prn. Call if sy increase or fail to improve.Follow up:3 months or as needed Functional Status Functional Condition Comment Date Status Independent with all ADL's Active Mental Status Description No Information Available Referrals Description No Information Available
[2019-02-24 09:22] VITALS: BP 143/72
--- NOTE | 2019-02-24 09:37 | UC ---
Eye Complaint HPI - HPI Summary HPI Summary: Pt Presents with c/o left eye redness, mild upper eyelid swelling and clear discharge X 2 days. Pt denies known injury or trauma to eye. Pt does report that he was "working out boxing" two days ago but denies getting hit in eye. - History of Current Complaint Chief Complaint: UCEye Stated Complaint: eye issue Time Seen by Provider: 02/24/19 09:27 Hx Obtained From: Patient Onset/Duration: Sudden Onset, Lasting Days, Still Present Timing: Constant Severity Initially: Mild Severity Currently: Moderate Pain Intensity: 0 Character: Dull, Foreign Body Sensation Aggravating Factor(s): Blinking Alleviating Factor(s): Nothing Associated Signs And Symptoms: Positive: Drainage (Clear), Swelling - left upper eyelid - Risk Factors Penetrating Injury Risk Factor: Negative Globe Rupture Risk Factors: Negative Acute Glaucoma Risk Factors: Negative Optic Artery Occlusion Risk Factors: Negative - Allergies/Home Medications Allergies/Adverse Reactions: Allergies Allergy/AdvReac Type Severity Reaction Status Date / Time No Known Allergies Allergy Verified 02/24/19 09:23 Home Medications: Home Medications Olanzapine/Fluoxetine HCl [Symbyax 3-25 mg Capsule] 1 cap PO DAILY 02/24/19 [ History Confirmed 02/24/19] PMH/Surg Hx/FS Hx/Imm Hx Previously Healthy: Yes - Surgical History Surgical History: None Surgery Procedure, Year, and Place: left elbow ORIF. LIPOMA REMOVAL UNDER CHIN - Family History Known Family History: Positive: None, Respiratory Disease - Mom w/ asthma, Non- Contributory Family History: no known cardio-vascular disorders in family lineage - Social History Occupation: Employed Full-time Lives: With Family Alcohol Use: Occasionally Substance Use Type: None Smoking Status (MU): Never Smoked Tobacco Have You Smoked in the Last Year: No - Immunization History Most Recent Tetanus Shot: unknown Vaccination Up to Date: Yes Review of Systems All Other Systems Reviewed And Are Negative: Yes Constitutional: Positive: Negative Skin: Positive: Negative Eyes: Positive: Drainage, Eye Redness - left eye, Other - left upper eyelid ENT: Positive: Negative Respiratory: Positive: Negative Cardiovascular: Positive: Negative Gastrointestinal: Positive: Negative Genitourinary: Positive: Negative Motor: Positive: Negative Neurovascular: Positive: Negative Musculoskeletal: Positive: Negative Neurological: Positive: Negative Psychological: Positive: Negative Is Patient Immunocompromised?: No Physical Exam Triage Information Reviewed: Yes Appearance: Well-Appearing Vital Signs: Initial Vital Signs Temp 98.3 F 02/24/19 09:19 Pulse 75 02/24/19 09:19 Resp 16 02/24/19 09:19 BP 143/72 02/24/19 09:19 Pulse Ox 99 02/24/19 09:19 Vital Signs Reviewed: Yes Eyes: Positive: Conjunctiva Inflamed, Discharge - clear, eye lids mild swelling ENT Exam: Normal Dental Exam: Normal Neck exam: Normal Respiratory Exam: Normal Respiratory: Positive: No respiratory distress Musculoskeletal Exam: Normal Neurological Exam: Normal Psychological Exam: Normal Skin Exam: Normal Eye Complaint Course/Dx - Course Course Of Treatment: I discussed viral, bacterial and allergic conjunctivitis with the pt. Additionally, I reviewed potential of FB in eye. Pt denies any risk or known FB or injury for corneal abrasion. - Differential Dx/Diagnosis Differential Diagnosis/HQI/PQRI: Conjunctivitis, Corneal Abrasion Provider Diagnosis: Conjunctivitis Discharge ED - Sign-Out/Discharge Documenting (check all that apply): Patient Departure All imaging exams completed and their final reports reviewed: No Studies - Discharge Plan Condition: Stable Disposition: HOME Prescriptions: Ofloxacin 0.3% (Eye Drop) [Ocuflox OPTH 0.3% (Eye Drop)] 2 drop LEFT EYE Q6H 7 Days #1 btl Patient Education Materials: Conjunctivitis (ED) Referrals: Maritza Steward PA [Primary Care Provider] - If Needed - Billing Disposition and Condition Condition: STABLE Disposition: Home
== END 2019-02-24 09:45 | disposition home or self-care (01) ==
LOC: UCCORT 09:11
DX: H10.9 Unspecified conjunctivitis (principal)
CPT/HCPCS: 99212; G0463